=== PATIENT | male | born 1960 | race Caucasian/White ===

== ENCOUNTER 2018-02-18 15:04 | Emergency (ER) | payer OTHER ==
--- NOTE | 2018-02-18 15:38 | ERPHSYRPT ---
- History of Present Illness Time Seen by Provider: 02/18/18 15:32 Source: patient Exam Limitations: no limitations Patient Subjective Stated Complaint: pt here for laceration to left finger, he states cut on saw Triage Nursing Assessment: pt has wedge shape avulsion to finger, no bleeding Physician History: The patient is a 57-year-old right-handed male complaining that he accidentally cut it chunk of tissue out of the end of his thumb and thumb nail on the left hand with a saw prior to arrival. He has no numbness or tingling. It was bleeding significantly at the time but has almost resolved at this time. His last tetanus vaccination is unknown. He is on medicines for high blood pressure and high cholesterol. Timing/Duration: today Quality: painful Severity: moderate Location: hands (left thumb) Possible Causes: other (saw) Allergies/Adverse Reactions: No Known Drug Allergies Allergy (Verified 02/18/18 15:12) Home Medications: Atorvastatin Calcium [Lipitor] 10 mg PO HS 01/14/14 [History] Carvedilol [Coreg] 25 mg PO BID 01/14/14 [History] Magnesium Oxide 400 mg [Mag-Ox 400] 400 mg PO BID 01/14/14 [History] Multivitamin with Folic Acid [Thera] 1 each PO DAILY 01/14/14 [History] Tamsulosin HCl 0.4 mg [Flomax 0.4 MG] 0.4 mg PO DAILY 02/18/18 [History] Hx Tetanus, Diphtheria Vaccination/Date Given: No Hx Influenza Vaccination/Date Given: No Hx Pneumococcal Vaccination/Date Given: No Immunizations Up to Date: Yes - Review of Systems Constitutional: No Fever, No Chills Eyes: No Symptoms Ears, Nose, & Throat: No Symptoms Respiratory: No Cough, No Dyspnea Cardiac: No Chest Pain, No Edema, No Syncope Abdominal/Gastrointestinal: No Abdominal Pain, No Nausea, No Vomiting, No Diarrhea Genitourinary Symptoms: No Dysuria Musculoskeletal: No Back Pain, No Neck Pain Skin: Other (laceration) Neurological: No Dizziness, No Focal Weakness, No Sensory Changes Psychological: No Symptoms Endocrine: No Symptoms Hematologic/Lymphatic: No Symptoms Immunological/Allergic: No Symptoms All Other Systems: Reviewed and Negative - Past Medical History Pertinent Past Medical History: Yes Cardiac History: High Cholesterol, Hypertension - Past Surgical History Past Surgical History: Yes Musculoskeletal: Orthopedic Surgery - Social History Smoking Status: Never smoker Exposure to second hand smoke: No Drug Use: none Patient Lives Alone: No - Nursing Vital Signs Nursing Vital Signs: Initial Vital Signs Temperature 97.0 F 02/18/18 15:14 Pulse Rate 87 02/18/18 15:14 Respiratory Rate 16 02/18/18 15:14 Blood Pressure 174/109 02/18/18 15:14 O2 Sat by Pulse Oximetry 98 02/18/18 15:14 Pain Scale Pain Intensity 5 - Physical Exam General Appearance: no apparent distress, alert Eye Exam: PERRL/EOMI, eyes nml inspection Ears, Nose, Throat Exam: normal ENT inspection, pharynx normal, moist mucous membranes Neck Exam: normal inspection, non-tender, supple, full range of motion Respiratory Exam: normal breath sounds, lungs clear, No respiratory distress Cardiovascular Exam: regular rate/rhythm, normal heart sounds Gastrointestinal/Abdomen Exam: soft, mass, No tenderness Rectal Exam: not done Back Exam: normal inspection, normal range of motion, No CVA tenderness, No vertebral tenderness Extremity Exam: normal inspection, normal range of motion Neurologic Exam: alert, oriented x 3, cooperative, normal mood/affect, sensation nml, No motor deficits Skin Exam: laceration (1.0 cm wedge-shaped avulsion to medial aspect of left thumb that also involves the nail and nail bed.) SpO2 Interpretation: normal SpO2: 98 Oxygen Delivery: Room Air - Radiology Exams Left Hand X-ray Interpretation: Interpreted by me, Negative, No Fracture Ordered Tests: Active Orders 24 hr Category Date Time Status Wound Care STAT Care 02/18/18 15:42 Active HAND (MINIMUM 3 VIEWS) Stat Exams 02/18/18 15:42 Taken Medication Summary Discontinued Medications Generic Name Dose Route Start Last Admin Trade Name Freq PRN Reason Stop Dose Admin Diphtheria/Tetanus/Acell Pertussis 0.5 ml 02/18/18 15:42 02/18/18 15:55 Adacel Vial IM 02/18/18 15:43 0.5 ml .ONCE ONE Administration Diphtheria/Tetanus/Acell Pertussis Confirm 02/18/18 15:57 Adacel Vial Administered 02/18/18 15:58 Dose 0.5 ml IM .STK-MED ONE Ketorolac Tromethamine 60 mg 02/18/18 16:02 07/24/18 16:04 Toradol 30 Mg Injection IM 02/18/18 16:03 60 mg STAT ONE Administration Ketorolac Tromethamine Confirm 02/18/18 16:03 Toradol 30 Mg Injection Administered 02/18/18 16:04 Dose 60 mg .ROUTE .STK-MED ONE - Progress Progress: improved Counseled pt/family regarding: diagnosis, rad results - Departure Time of Disposition: 16:20 Departure Disposition: Home Clinical Impression: Laceration of left thumb Condition: Stable Critical Care Time: No Referrals: CADYEN BONILLA MD [Primary Care Provider] - Additional Instructions: You have a laceration to the tip of her left thumb that involves the thumbnail. I discussed with you that the only way I can close it with sutures would be to remove your thumbnail. You declined to remove the thumbnail. Surgicel was placed on the thumb. Tetanus vaccination and Toradol 60 mg was given IM in the ER. Take Augmentin 875 to times a day for 10 days. Keep the wound clean and dry. Follow-up with your primary medical doctor as needed. Prescriptions: Amoxicillin/Potassium Clav [Augmentin 875-125 Tablet] 875 mg PO BID #20 tablet
[2018-02-18] MEDS ORDERED: Adacel Vial IM ONE ×2 (15:42→15:57)
[2018-02-18] MEDS ORDERED: TORAdol 30 mg Injection IM ONE (16:02)
[2018-02-18] MEDS ORDERED: TORAdol 30 mg Injection ONE (16:03)
[2018-02-18 16:32] VITALS: BP 164/98; PULSE 68; O2SAT 97
--- NOTE | 2018-02-18 16:36 | XRAY ---
Indication: Thumb laceration with saw. Comparison: None 3 views of the left hand demonstrates distal thumb laceration and tiny 2nd/3rd DIP heterotopic ossifications either degenerative versus old injury. No other bony, articular, or soft tissue abnormalities.
== END 2018-02-18 16:32 | disposition home or self-care (01) ==
LOC: ED 15:04
DX: S61.112A Laceration without foreign body of left thumb with damage to nail, initial encounter (principal); W27.8XXA Contact with other nonpowered hand tool, initial encounter
CPT/HCPCS: 73130; 90471; 90715; 96372; 99284; J1885

== ENCOUNTER 2019-12-05 23:45 | Emergency (ER) | payer MEDICAID, OTHER ==
[2019-12-06] MEDS ORDERED: NORCO 5/325 MG PO ONE (00:10)
[2019-12-06] MEDS ORDERED: NORCO 5/325 MG ONE (00:14)
[2019-12-06] MEDS ORDERED: SUBLIMAZE 100 MCG/2 ML INTRANASAL ONE (00:33)
[2019-12-06] MEDS ORDERED: SUBLIMAZE 100 MCG/2 ML ONE (00:35)
--- NOTE | 2019-12-06 00:44 | ERPHSYRPT ---
- History of Present Illness Time Seen by Provider: 12/06/19 00:05 Source: patient Exam Limitations: no limitations Patient Subjective Stated Complaint: pt states that he was helping his son move items today, pt states that he tripped over a toolbox and fell onto the blacktop , pt states that he put out his hands to catch himself, pt states that rt wrist is hurting and has been unable to have any relief in pain, pt states that he took 2 tylenol at 2000 Triage Nursing Assessment: pt ambulated into the er, pt is axo x4, pain 8/10 to rt wrist, tenderness present to rt wrist, decreased ROM to rt wrist, weak margin clerk to rt hand, hypertensive 199/162, 177/105, abrassion to left knee Physician History: The patient is a [id number] male who presents with a chief complaint of right wrist pain. Onset was 2000 hrs. this evening. He states that he was carrying some solar lights when he tripped over a toolbox and FOOSH on the right. There is no loss of conscious reported in the patient complained of an abrasion to the left knee as a result of the fall in addition to the chief complaint above. The pain was described as a "toothache" noted to the right wrist that is nonradiating constant and mild to moderate severity. He took some Tylenol this evening prior to arrival with minimal relief in his pain. He denies being anticoagulated and did not impact his head or lose consciousness. His last tetanus prophylaxis was reportedly in 2018. He has been able to weight-bear on the left knee without any difficulty and not complaining of any significant tenderness to the left knee. He denies any paresthesias in the right hand. Allergies/Adverse Reactions: No Known Drug Allergies Allergy (Verified 12/06/19 00:12) Home Medications: Atorvastatin Calcium [Lipitor] 40 mg PO HS 01/14/14 [History] Carvedilol [Coreg] 12.5 mg PO BID 01/14/14 [History] Multivitamin with Folic Acid [Thera] 1 each PO DAILY 01/14/14 [History] Losartan Potassium 100 mg PO BID 12/05/19 [History] Paroxetine HCl 10 mg PO DAILY 12/05/19 [History] Hx Tetanus, Diphtheria Vaccination/Date Given: Yes (2018) Hx Influenza Vaccination/Date Given: Yes Hx Pneumococcal Vaccination/Date Given: Yes Travel Risk - International Travel Have you traveled outside of the country in past 3 weeks: No Have you or anyone close to you been diagnosed with or: No Do your reside in a community with a known COVID-19 case?: Yes If Yes where:: [facility] - Coronavirus Screening Has patient experienced Coronavirus symptoms: No - Review of Systems Constitutional: No Symptoms Musculoskeletal: Fall, Other (Right wrist pain, tenderness, and swelling) Skin: Other (Abrasion, left knee) Neurological: No Symptoms, No Parasthesia - Past Medical History Pertinent Past Medical History: Yes Cardiac History: High Cholesterol, Hypertension Endocrine Medical History: Diabetes Type II Psycho-Social History: Depression Male Reproductive Disorders: Prostate Problems - Past Surgical History Past Surgical History: Yes Musculoskeletal: Orthopedic Surgery Other Surgical History: prostate removed in 06/16, rt knee - Social History Smoking Status: Never smoker Exposure to second hand smoke: No Drug Use: none Patient Lives Alone: No - Nursing Vital Signs Nursing Vital Signs: Initial Vital Signs Temperature 98.6 F 12/05/19 23:59 Pulse Rate 88 12/05/19 23:59 Respiratory Rate 16 12/05/19 23:59 Blood Pressure 199/162 12/05/19 23:59 O2 Sat by Pulse Oximetry 96 12/05/19 23:59 Pain Scale Pain Intensity 5 - Physical Exam General Appearance: no apparent distress Eye Exam: eyes nml inspection, post op pupil defect (R), No scleral icterus Ears, Nose, Throat Exam: No dry mucous membranes Neck Exam: normal inspection, non-tender, supple Respiratory Exam: normal breath sounds, lungs clear, airway intact, No chest tenderness, No respiratory distress, No diminished breath sounds, No accessory muscle use Cardiovascular Exam: regular rate/rhythm, normal heart sounds, capillary refill <2 sec, other (Radial pulse 2+ bilaterally), No murmur, No friction rub, No gallop, No edema, No pulse deficit Back Exam: normal inspection Extremity Exam: swelling, tenderness (Tendernesss noted to the right wrist with mild swelling. No crepitus or obvious deformity. Active and passive flexion of the R wrist was limited due to pain. ), other (Motor function intact in the R hand. No significant elbow, shoulder or knee tenderness. No deformity or crepitus noted to the R knee) Neurologic Exam: alert, oriented x 3, cooperative, sensation nml, other ( Sensation to gross touch intact and equal in the radial, ulnar, and median nerve distributions of the hands.), No motor deficits, No sensory deficit, No abnormal gait Skin Exam: normal color, warm, dry, other (Superficial abrasion noted to the left knee with no active bleeding) SpO2 Interpretation: normal SpO2: 96 O2 Delivery: Room Air Procedures - Splinting Location of Splint: Right, Wrist Type of Splint: Other (Orthoglass sugartong with sling) Splint Applied By: ED Physician Pre-Proc Neuro Vasc Exam: normal Post-Proc Neuro Vasc Exam: neurovascular intact, unchanged from pre-exam - Course Nursing assessment & vital signs reviewed: Yes - Radiology Exams Wrist X-ray Interpretation: Interpreted by me, Reviewed by me (Nondisplaced distal radius fracture), Non-displaced Fracture Ordered Tests: Active Orders 24 hr Category Date Time Status Isolation, Initiate & Maintain Q4H Care 12/06/19 00:12 Active Sling Application STAT Care 12/06/19 00:52 Active Splint STAT Care 12/06/19 00:52 Active WRIST (MIN 3 VIEWS) Stat Exams 12/06/19 00:09 Taken Medication Summary Discontinued Medications Generic Name Dose Route Start Last Admin Trade Name Freq PRN Reason Stop Dose Admin Hydrocodone Bitart/Acetaminophen 2 tab 12/06/19 00:10 12/06/19 00:14 [place] 5/325 Mg PO 12/06/19 00:11 2 tab STAT ONE Administration Hydrocodone Bitart/Acetaminophen Confirm 12/06/19 00:14 [place] 5/325 Mg Administered 12/06/19 00:15 Dose 2 tab .ROUTE .STK-MED ONE Fentanyl Citrate 100 mcg 12/06/19 00:33 12/06/19 00:37 Sublimaze 100 Mcg/2 Ml INTRANASAL 12/06/19 00:34 100 mcg STAT ONE Administration Fentanyl Citrate Confirm 12/06/19 00:35 Sublimaze 100 Mcg/2 Ml Administered 12/06/19 00:36 Dose 100 mcg .ROUTE .STK-MED ONE - Progress Progress: improved Progress Note: 12/06/19 01:09 Nontoxic in appearance. The patient presents with right wrist pain that he sustained after mechanical fall. X-ray was reviewed to eval for evidence of fracture or dislocation and showed evidence of a subtle nondisplaced distal radius fracture. I am currently awaiting formal radiology review at this time to confirm the fracture but I will go ahead and splint and a sugar tong and have the patient follow-up in the outpatient orthopedic clinic located at this facility. The patient was instructed to follow-up this week in clinic to undergo further evaluation and management and possible casting at the discretion of the following provider. In the meantime, I instructed him to take [place] as needed for any breakthrough pain and provide stool softeners to counter any opiate-induced constipation. Inspect report was reviewed and it appears he has no controlled substances prescribed within the last year. He agreed with and verbally understood the discharge plan. Counseled pt/family regarding: diagnosis, need for follow-up, rad results - Departure Departure Disposition: Home Clinical Impression: Nondisplaced fracture of distal end of right radius, Fall, Hypertension Condition: Good Critical Care Time: No Referrals: ORTHO - BEE DE LEÓN NP [NON-STAFF PHY W/O PRIVILEGES] - Instructions: High Blood Pressure in Adults, Preventing Falls, Radius Fracture (DC), How to Use a Shoulder Sling, Splint Care Additional Instructions: Please follow-up in orthopedics clinic located in this facility within a week, ideally this coming Saturday. Forms: Ortho Referral Prescriptions: Hydrocodone/APAP 5/325 [[place] 5/325 mg] 1 each PO Q6H PRN PRN #20 tablet MDD 8 PRN Reason: Pain Docusate Sodium 100 mg [Colace 100 MG] 100 mg PO BID #60 cap
[2019-12-06 01:06] VITALS: BP 152/93; PULSE 80
[2019-12-06 01:11] VITALS: O2SAT 96
--- NOTE | 2019-12-06 08:45 | XRAY ---
Indication: Pain following fall. Comparison: None 3 view right wrist demonstrates widened scapholunate interval with mild posterior soft tissue swelling concerning for underlying ligamentous tear. Tiny distal radius bone island and mild 1st metacarpal multangular degenerative changes. No other bony, articular, or soft tissue abnormalities.
== END 2019-12-06 01:06 | disposition home or self-care (01) ==
LOC: ED 23:45
DX: S52.501A Unspecified fracture of the lower end of right radius, initial encounter for closed fracture (principal); I10 Essential (primary) hypertension; W01.198A Fall on same level from slipping, tripping and stumbling with subsequent striking against other object, initial encounter; Y93.9 Activity, unspecified; Y92.9 Unspecified place or not applicable; S80.212A Abrasion, left knee, initial encounter; Z79.899 Other long term (current) drug therapy; E11.9 Type 2 diabetes mellitus without complications; F32.9 Major depressive disorder, single episode, unspecified
CPT/HCPCS: 73110; 99284; J3010; A9270-GY

== ENCOUNTER 2023-11-28 05:05 | Emergency (ER) | payer BC ==
[2023-11-28 05:34] VITALS: TEMP 97.3
[2023-11-28] MEDS ORDERED: XYLOCAINE 2% Uro-Jet ONE (05:39)
[2023-11-28] MEDS: XYLOCAINE 2% Uro-Jet TOP ONE (05:43)
--- NOTE | 2023-11-28 05:46 | ERPHSYRPT ---
- History of Present Illness Time Seen by Provider: 11/28/23 05:30 Historian: patient Exam Limitations: no limitations Patient Subjective Stated Complaint: urinary retention since yesterday Triage Nursing Assessment: pt ambulatory to bed by self with steady gait, pt alert and oriented x3, skin pwd, pt c/o urinary retention since yesterday, last time patient urinated was noon yesterday, pt has a TURP procedure done at [facility] on saturday with Dr. Mckenzie and was discharged from hospital yesterday Physician History: 63-year-old male presents to the emergency department for evaluation status post urinary retention. Patient had a TURP procedure done yesterday. Patient was discharged today. Hernández catheter was removed. Patient was able to pass urine normally up until this evening. Patient feels his bladder is becoming progressively distended. No trauma no fever no nausea vomiting or diaphoresis. Symptoms are mild to moderate in intensity. No specific worsening or improving factors. Patient voices no other complaints or concerns at this time. Patient's urologist is Dr. Mckenzie Portions of this note were created with voice recognition technology. There may be grammatical, spelling, punctuation or sound alike errors Timing/Duration: today Activities at Onset: none Quality: aching Abdominal Pain Onset Location: other Pain Radiation: no radiation Severity of Pain-Max: moderate Severity of Pain-Current: mild Modifying Factors: Improves With: nothing Associated Symptoms: denies symptoms Previous symptoms: no prior history Allergies/Adverse Reactions: No Known Drug Allergies Allergy (Verified 11/28/23 05:24) Home Medications: Atorvastatin Calcium [Lipitor] 40 mg PO HS 01/14/14 [History] carvediloL [Coreg] 12.5 mg PO BID 01/14/14 [History] Losartan Potassium 100 mg PO BID 12/05/19 [History] Amitriptyline HCl 25 mg [Amitriptyline 25 mg Tablet] 25 mg PO HS 11/28/23 [ History] Chlorthalidone 25 mg PO DAILY 11/28/23 [History] Ketorolac Trometh 10 mg Tab [TORAdol 10 MG TABLET] 10 mg PO QID PRN 11/28/23 [History] Phenazopyridine HCl 200 mg [Pyridium 200 mg] 200 mg PO TID 11/28/23 [History] Potassium Chloride [Klor-Con M10] 10 meq PO DAILY 11/28/23 [History] Semaglutide [Ozempic] 1 mg SQ WEEKLY 11/28/23 [History] cephALEXin [Cephalexin] 500 mg PO TID 11/28/23 [History] Hx Tetanus, Diphtheria Vaccination/Date Given: Yes (2017) Hx Influenza Vaccination/Date Given: Yes Hx Pneumococcal Vaccination/Date Given: Yes Immunizations Up to Date: Yes Travel Risk - International Travel Have you traveled outside of the country in past 3 weeks: No - Emerging Infectious Disease Are you exhibiting symptoms associated with any current EIDs: No - Review of Systems Constitutional: No Symptoms, No Fever, No Chills Eyes: No Symptoms Ears, Nose, & Throat: No Symptoms Respiratory: No Symptoms, No Cough, No Dyspnea Cardiac: No Symptoms, No Chest Pain, No Edema, No Syncope Abdominal/Gastrointestinal: No Symptoms, No Abdominal Pain, No Nausea, No Vomiting, No Diarrhea Genitourinary Symptoms: No Symptoms, No Dysuria Musculoskeletal: No Symptoms, No Back Pain, No Neck Pain Skin: No Symptoms, No Rash Neurological: No Symptoms, No Dizziness, No Focal Weakness, No Sensory Changes Psychological: No Symptoms Endocrine: No Symptoms Hematologic/Lymphatic: No Symptoms Immunological/Allergic: No Symptoms All Other Systems: Reviewed and Negative - Past Medical History Pertinent Past Medical History: Yes Neurological History: No Pertinent History ENT History: No Pertinent History Cardiac History: High Cholesterol, Hypertension Respiratory History: Sleep Apnea Endocrine Medical History: Diabetes Type II Musculoskeletal History: No Pertinent History GI Medical History: No Pertinent History History: No Pertinent History Psycho-Social History: Depression Male Reproductive Disorders: Prostate Problems - Past Surgical History Past Surgical History: Yes Neuro Surgical History: No Pertinent History Cardiac: No Pertinent History Respiratory: No Pertinent History Gastrointestinal: No Pertinent History Genitourinary: No Pertinent History Musculoskeletal: Orthopedic Surgery Male Surgical History: No Pertinent History Other Surgical History: prostate removed in 06/16, rt knee, TURP - Social History Smoking Status: Former smoker Exposure to second hand smoke: No Drug Use: none Patient Lives Alone: No - Nursing Vital Signs Nursing Vital Signs: Initial Vital Signs Temperature 97.3 F 11/28/23 05:25 Pulse Rate 100 H 11/28/23 05:25 Respiratory Rate 18 11/28/23 05:25 Blood Pressure 161/95 11/28/23 05:25 O2 Sat by Pulse Oximetry 94 L 11/28/23 05:25 Pain Scale Pain Intensity 0 - Physical Exam General Appearance: no apparent distress, alert Eye Exam: PERRL/EOMI, eyes nml inspection Ears, Nose, Throat Exam: normal ENT inspection, pharynx normal, moist mucous membranes Neck Exam: normal inspection, non-tender, supple, full range of motion Respiratory Exam: normal breath sounds, lungs clear, airway intact, No respiratory distress Cardiovascular Exam: regular rate/rhythm, normal heart sounds Gastrointestinal/Abdomen Exam: soft, other (Fullness to suprapubic region), No tenderness, No mass Back Exam: normal inspection, normal range of motion, No CVA tenderness, No vertebral tenderness Extremity Exam: normal inspection, normal range of motion, pelvis stable Neurologic Exam: alert, oriented x 3, cooperative, sensation nml, No motor deficits Skin Exam: normal color, warm, dry Lymphatic Exam: No adenopathy SpO2 Interpretation: normal SpO2: 94 O2 Delivery: Room Air - Course Nursing assessment & vital signs reviewed: Yes Ordered Tests: Active Orders 24 hr Category Date Time Status Cath [Catheter-[place] Hernández] STAT Care 11/28/23 05:45 Active CULTURE,URINE Stat Lab 11/28/23 05:56 Received POCT GLUCOSE Stat Lab 11/28/23 06:24 Completed UA W/RFX UR CULTURE Stat Lab 11/28/23 05:56 Completed Medication Summary Discontinued Medications Generic Name Dose Route Start Last Admin Trade Name Hussein PRN Reason Stop Dose Admin Lidocaine HCl 200 mg 11/28/23 05:38 11/28/23 05:43 Lidocaine Hcl 20 Mg/Ml Jelly Uro-Jet TOP 11/28/23 05:39 200 mg STAT ONE Administration Lidocaine HCl Confirm 11/28/23 05:39 Lidocaine Hcl 20 Mg/Ml Jelly Uro-Jet Administered 11/28/23 05:40 Dose 200 mg .ROUTE .STK-MED ONE Lab/Rad Data: Laboratory Results 11/28/23 11/28/23 Range/Units 06:24 05:56 POC Glucometer 105 (74 to 106) mg/dL Urine Color Yellow (Yellow) Urine Appearance Clear (Clear) Urine pH 5.5 (4.6-8.0) Ur Specific [place] 1.020 (1.005-1.030) Urine Protein 30 (Negative) Urine Glucose (UA) >=1000 A (Negative) mg/dL Urine Ketones Negative (Negative) Urine Blood Large A (Negative) Urine Nitrite Negative (Negative) Urine Bilirubin Negative (Negative) Urine Urobilinogen 1.0 A (0.2) mg/dL Ur Leukocyte Esterase Small A (Negative) U Hyaline Cast (Auto) NONE SEEN (0-2) /LPF Urine Microscopic RBC >100 A (0-5) /HPF Urine Microscopic WBC 11-20 A (0-5) /HPF Ur Epithelial Cells None Seen (None Seen) /HPF Urine Bacteria None Seen (None Seen) /HPF Urine Culture Reflexed ORDERED SEPARATELY (NO) - Progress Progress: improved Progress Note: 63-year-old male status post TURP presents to our ED for evaluation post urinary retention. Bladder scan evaluation revealed a volume of 410 cc of urine. Hernández catheter placed. Urine expressed. Urine clear. Patient experienced immediate relief. Catheter retained. Urinalysis forwarded to the lab for results pending. We will maintain Hernández catheter. Patient will follow-up with his urologist Dr. Saleh for further evaluation and treatment. Patient voices no other complaints or concerns at this time. Complexity problem addressed is moderate acute complicated. No critical care time. Complexity of data reviewed and analyzed is moderate. Test ordered test reviewed results analyzed and correlated clinically with history and physical exam. Risk of complication and or risk morbidity/mortality patient management is moderate. Vital stable. Time spent to discharge patient is approximately 20 minutes. Plan of care established for shared decision making. No social determinants health present to impede follow-up Portions of this note were created with voice recognition technology. There may be grammatical, spelling, punctuation or sound alike errors 11/28/23 05:43 Total output about 1100 mL. Urinalysis suggestive of possible UTI. Pyuria observed. However patient currently on Keflex. Large glucose observed in urine. Accu-Chek 105. Vital stable. Will discharge home. Patient agrees to follow-up with his urologist within 48 hours for evaluation. Portions of this note were created with voice recognition technology. There may be grammatical, spelling, punctuation or sound alike errors 11/28/23 06:27 Counseled pt/family regarding: diagnosis, need for follow-up - Departure Departure Disposition: Home Clinical Impression: Urinary retention Condition: Stable Critical Care Time: No Referrals: CANDY FLANAGAN, LINCOLN [Primary Care Provider] - Follow up/PCP as directed Instructions: How to Care for Your Hernández Catheter, Male, Urinary Retention (DC) Additional Instructions: Discharge/Care Plan JOSE JUAN AMANDA was seen on 11/28/23 in the Emergency Room. The patient was counseled regarding Diagnosis,Lab results, Imaging studies, need for follow up and when to return to the Emergency Room. Prescriptions given: Discharge Note I have spoken with the patient and/or caregivers. I have explained the patient's condition, diagnosis and treatment plan based on the information available to me at this time. I have answered the patient's and/or caregiver's questions and addressed any concerns. The patient and/or caregivers have as good understanding of the patient's diagnosis, condition and treatment plan as can be expected at this point. The vital signs have been stable. The patient's condition is stable and appropriate for discharge from the emergency department. The patient will pursue further outpatient evaluation with the primary care physician or other designated or consulting physician as outlined in the discharge instructions. The patient and/or caregivers are agreeable to this plan of care and follow-up instructions have been explained in detail. The patient and/or caregivers have received these instruction. The patient/and or caregivers are aware that any significant change in condition or worsening of symptoms should prompt an immediate return to this or the closest emergency department or call 911.
[2023-11-28 06:12] LABS: Appearance Clear (Clear); Bacteria None Seen /HPF (None Seen); Bilirubin Negative (Negative); Blood Large (Negative); Epithelial Cells None Seen /HPF (None Seen); Glucose, Urine >=1000 mg/dL (Negative); Hyaline Casts NONE SEEN /LPF (0-2); Ketones Negative (Negative); Leukocyte Esterase Small (Negative); Nitrite Negative (Negative); Ph 5.5 (4.6-8.0); Protein,Urine Dip 30 (Negative); RBC >100 /HPF (0-5)
[2023-11-28 06:15] LABS: ADD URINE CULTURE? ORDERED SEPARATELY (NO)
[2023-11-28 06:38] VITALS: BP 114/80; PULSE 76; RESP 17; O2SAT 96
== END 2023-11-28 06:37 | disposition home or self-care (01) ==
LOC: ED 05:05
DX: R33.9 Retention of urine, unspecified (principal); E11.9 Type 2 diabetes mellitus without complications
CPT/HCPCS: 51702; 81001; 82947; 87086; 99283